=== PATIENT | female | born 1975 | race African-American/Black ===

== ENCOUNTER 2017-12-29 05:49 | Inpatient (IN) | payer OTHER ==
[2017-12-29] MEDS ORDERED: ACETAMINOPHEN 1000 MG/100 ML IVPB (07:00)
[2017-12-29] MEDS: CEFAZOLIN 2 GM/50 ML (PMX) 50 ML IVPB ×2 (07:30→13:31)
[2017-12-29] MEDS ORDERED: morphine SULFATE/PF (10 MG/10 ML) INJ (07:59)
[2017-12-29] MEDS ORDERED: BUPIVACAINE 0.75%/DEXT (SPINAL) 2 ML INJ (07:59)
[2017-12-29] MEDS ORDERED: FENTAnyl 50 MCG/ML VIAL ×2 (07:59→08:02)
[2017-12-29] MEDS ORDERED: ROCURONIUM 50 MG INJ ×2 (08:02→09:57)
[2017-12-29] MEDS ORDERED: PROPOFOL 20 ML (08:02)
[2017-12-29] MEDS ORDERED: MIDAZOLAM 1 MG/ML 2 ML INJ (08:02)
[2017-12-29] MEDS ORDERED: LIDOCAINE 1% (MDV) 20 ML INJ (08:04)
[2017-12-29] MEDS ORDERED: PHENYLephrine (100 MCG/ML) 5ML SYG ×2 (08:19→08:37)
[2017-12-29] MEDS ORDERED: CEFAZOLIN 1 GM INJ (08:23)
[2017-12-29] MEDS ORDERED: FAMOTIDINE 20 MG INJ (08:23)
[2017-12-29] MEDS ORDERED: ONDANSETRON 4 MG INJ (08:23)
[2017-12-29] MEDS ORDERED: DEXAMETHASONE 4 MG/ML 1 ML INJ ×2 (08:23→09:35)
[2017-12-29] MEDS ORDERED: ROPIVACAINE 0.2% 20 ML VIAL (09:34)
[2017-12-29] MEDS ORDERED: ZOLPIDEM 5 MG TAB PO (10:30)
[2017-12-29] MEDS ORDERED: DIPHENHYDRAMINE 50 MG INJ IV (10:30)
[2017-12-29] MEDS ORDERED: HYDROmorphONE 0.5 MG/0.5 ML SYG IV (10:30)
[2017-12-29] MEDS ORDERED: NALOXONE (0.4 MG/ML) INJ IV (10:30)
[2017-12-29] MEDS ORDERED: SUGAMMADEX SODIUM 200 MG/2 ML VIAL IV ×2 (10:41→11:18)
[2017-12-29] MEDS ORDERED: ACETAMINOPHEN 325 MG TAB PO (11:00)
[2017-12-29] MEDS ORDERED: FLUMAZENIL 0.5 MG INJ (11:22)
[2017-12-29] MEDS ORDERED: NALOXONE (0.4 MG/ML) INJ (11:22)
[2017-12-29] MEDS: KETOROLAC 30 MG INJ IV (12:05)
[2017-12-29] MEDS: ONDANSETRON 4 MG INJ IV ×2 (13:25→20:37)
[2017-12-29] MEDS: LACTATED RINGER'S 1,000 ML IV* ×2 (15:30→23:30)
[2017-12-29] MEDS: IBUPROFEN 600 MG TAB PO ×2 (19:00)
[2017-12-30] MEDS: LACTATED RINGER'S 1,000 ML IV* ×4 (00:35→23:30)
[2017-12-30] MEDS: CEFAZOLIN 2 GM/50 ML (PMX) 50 ML IVPB ×2 (00:36→06:01)
[2017-12-30] MEDS: IBUPROFEN 600 MG TAB PO ×3 (03:00→19:47)
[2017-12-30 05:47] LABS: ADD MAN DIFF? NO
[2017-12-30 05:51] LABS: BASOPHILS % 0.1 % (0.0-2.0); HEMATOCRIT 30.5 % (37.0-47.0); HEMOGLOBIN 10.3 g/dl (12.0-16.0); LYMPHOCYTES # 1.2 10^3/ul (0.8-2.9); LYMPHOCYTES % 5.9 % (15.0-51.0); MEAN CORPUSCULAR HEMOGLOBIN 28.9 pg (29.0-33.0); MEAN CORPUSCULAR HGB CONC 33.8 g/dl (32.0-37.0); MEAN CORPUSCULAR VOLUME 85.4 fl (82.0-101.0); MEAN PLATELET VOLUME 9.7 fl (7.4-10.4); MONOCYTE # 1.4 10^3/ul (0.3-0.9); MONOCYTES % 6.9 % (0.0-11.0); NEUTROPHIL # 17.5 10^3/ul (1.6-7.5); NEUTROPHILS % 86.6 % (39.0-77.0); PLATELET COUNT 244 10^3/UL (140-415); RED BLOOD COUNT 3.57 10^6/ul (4.20-5.40); RED CELL DISTRIBUTION WIDTH 13.5 % (11.5-14.5)
[2017-12-30 05:51] LABS: WHITE BLOOD COUNT 20.2 10^3/ul (4.8-10.8)
[2017-12-30 06:28] LABS: ANION GAP 12 (8-16); BLOOD UREA NITROGEN 7 mg/dl (7-20); CALCIUM 8.1 mg/dl (8.4-10.2); CARBON DIOXIDE 24 mmol/L (21-31); CHLORIDE 106 mmol/L (97-110); CREATININE 0.64 mg/dl (0.44-1.00); GLUCOSE 91 mg/dl (70-220); POTASSIUM 4.9 mmol/L (3.5-5.1); SODIUM 137 mmol/L (135-144)
[2017-12-30] MEDS: HYDROCODONE/APAP (5/325) TAB PO ×2 (11:37→22:07)
[2017-12-30] MEDS: ONDANSETRON 4 MG INJ IV (22:56)
[2017-12-31] MEDS: FAMOTIDINE 20 MG INJ IV ×3 (00:34→21:39)
[2017-12-31] MEDS: IBUPROFEN 600 MG TAB PO ×3 (03:00→18:58)
[2017-12-31] MEDS: HYDROCODONE/APAP (5/325) TAB PO ×2 (07:06→21:39)
[2017-12-31] MEDS: LACTATED RINGER'S 1,000 ML IV* ×2 (07:30→15:30)
[2017-12-31 17:27] LABS: ADD MAN DIFF? NO
[2017-12-31 17:46] LABS: BASOPHILS % 0.3 % (0.0-2.0); EOSINOPHILS # 0.1 10^3/ul (0.0-0.5); EOSINOPHILS % 1.1 % (0.0-7.0); HEMATOCRIT 31.4 % (37.0-47.0); HEMOGLOBIN 10.4 g/dl (12.0-16.0); LYMPHOCYTES # 1.6 10^3/ul (0.8-2.9); LYMPHOCYTES % 16.4 % (15.0-51.0); MEAN CORPUSCULAR HEMOGLOBIN 28.4 pg (29.0-33.0); MEAN CORPUSCULAR HGB CONC 33.1 g/dl (32.0-37.0); MEAN CORPUSCULAR VOLUME 85.8 fl (82.0-101.0); MEAN PLATELET VOLUME 9.4 fl (7.4-10.4); MONOCYTE # 0.7 10^3/ul (0.3-0.9); MONOCYTES % 6.6 % (0.0-11.0); NEUTROPHIL # 7.6 10^3/ul (1.6-7.5); NEUTROPHILS % 75.3 % (39.0-77.0); PLATELET COUNT 259 10^3/UL (140-415); RED BLOOD COUNT 3.66 10^6/ul (4.20-5.40); RED CELL DISTRIBUTION WIDTH 13.6 % (11.5-14.5)
[2018-01-01] MEDS: IBUPROFEN 600 MG TAB PO ×3 (03:00→12:26)
[2018-01-01] MEDS: FAMOTIDINE 20 MG INJ IV (08:34)
[2018-01-01] MEDS: MAGNESIUM HYDROXIDE 30ML CUP PO (10:44)
== END 2018-01-01 17:15 | disposition home or self-care (01) | DRG 743 ==
LOC: REC 05:49 → MS1 12-30 13:35 → ICU 17:30
PROVIDERS: Obstetrics & Gynecology
PROC: 0UT90ZL Resection of Uterus, Supracervical, Open Approach (ICD-10-PCS; principal; 2017-12-29 07:45)
PROC: 0UT70ZZ Resection of Bilateral Fallopian Tubes, Open Approach (ICD-10-PCS; 2017-12-29 07:45)
DX: D25.2 Subserosal leiomyoma of uterus (principal); K44.9 Diaphragmatic hernia without obstruction or gangrene
CPT/HCPCS: 80048; 84703; 85025; 86850; 86900; 86901; 86920; 87081; 87086; 88305